=== PATIENT | male | born 1975 | race American Indian/Alaskan Native ===

== ENCOUNTER 2018-11-08 09:50 | Emergency (ER) | payer MEDICAID ==
[2018-11-08 09:59] VITALS: BP 113/64
--- NOTE | 2018-11-08 11:19 | Emergency Department Report ---
Chief Complaint: Urogenital-Male Stated Complaint: GENTIAL DISCHARGE - HPI History of Present Illness: NAD GIVEN URINE CUP MSE COMPLETED - Exam Vital Signs: Vital Signs 11/08/18 09:58 Temperature 97.8 F Pulse Rate 57 L Respiratory 18 Rate Blood Pressure 113/64 O2 Sat by Pulse 100 Oximetry MSE screening note: Focused history and physical exam performed. Due to findings the following was ordered: ED Disposition for MSE Condition: Stable Referrals: ALEXX VICTORIA MD [Primary Care Provider] - 3-5 Days
[2018-11-08] MEDS ORDERED: XYLOCAINE 1% MPF 5 mL INFILTRATI ONE (11:30)
[2018-11-08] MEDS ORDERED: ROCEPHIN IM ONE (11:30)
[2018-11-08] MEDS ORDERED: ZITHROMAX PO ONE (11:30)
--- NOTE | 2018-11-08 11:31 | Emergency Department Report ---
ED Dysuria HPI - HPI Chief Complaint: Urogenital-Male Stated Complaint: GENTIAL DISCHARGE Time Seen by Provider: 11/08/18 11:30 Duration: 2 Days Severity: Mild Symptoms: Dysuria: Yes, Frequency: No, Suprapubic Pain: No, Flank Pain: No, Fever: No, Hematuria: No, Abdominal Pain: No, Previous UTI's: No Other History: Penile discharge for 2 days. No abd or testicular pain. Sex with new female, unknown, unprotected. ED Review of Systems ROS: Stated complaint: GENTIAL DISCHARGE Other details as noted in HPI Comment: All other systems reviewed and negative ED Past Medical Hx - Past Medical History Previous Medical History?: Yes Hx HIV: Yes - Surgical History Past Surgical History?: No - Family History Family history: no significant - Social History Smoking Status: Current Every Day Smoker Substance Use Type: Alcohol - Medications Home Medications: Home Medications Medication Instructions Recorded Confirmed Last Taken Type Sulfamethoxazole/Trimethoprim 1 each PO BID #14 tablet 11/08/18 Unknown Rx [Bactrim DS TAB] Dysuria Exam - Exam General: Vital signs noted. No distress. Alert and acting appropriately. Exam: Yes Moist Mucous Membranes, No CVA Tenderness, No Abdominal Tenderness, No Rigidity or Guarding ED Course Vital Signs 11/08/18 09:58 Temperature 97.8 F Pulse Rate 57 L Respiratory 18 Rate Blood Pressure 113/64 O2 Sat by Pulse 100 Oximetry ED Medical Decision Making - Medical Decision Making Labs 11/08/18 11/08/18 Unknown Unknown Urine Color Straw Urine Turbidity Clear Urine pH 5.0 Ur Specific [place] 1.028 Urine Protein <15 mg/dl Urine Glucose (UA) Neg Urine Ketones Neg Urine Blood Sm Urine Nitrite Neg Urine Bilirubin Neg Urine Urobilinogen < 2.0 Ur Leukocyte Esterase Mod Urine WBC (Auto) 82.0 H Urine RBC (Auto) 5.0 Urine Bacteria (Auto) 1+ Urine Mucus Few C.trachomatis DNA (SDA) Not detected N.gonorrhoeae DNA (SDA) Detected H Vital Signs 11/08/18 09:58 Temperature 97.8 F Pulse Rate 57 L Respiratory 18 Rate Blood Pressure 113/64 O2 Sat by Pulse 100 Oximetry here with penile discharge no testicular pain concerned related to sexual activity he is a public health risk left untreated dc home with instructions for follow up Critical care attestation.: If time is entered above; I have spent that time in minutes in the direct care of this critically ill patient, excluding procedure time. ED Disposition Clinical Impression: STD (sexually transmitted disease), Penile discharge Disposition: DC- TO HOME OR SELFCARE Is pt being admited?: No Does the pt Need Aspirin: No Condition: Stable Instructions: Safe Sex (ED) Prescriptions: Sulfamethoxazole/Trimethoprim [Bactrim DS TAB] 1 each PO BID #14 tablet Referrals: ALEXX VICTORIA MD [Primary Care Provider] - 3-5 Days Time of Disposition: 12:04
[2018-11-08 12:02] LABS: Bacteria,Urine 1+ /HPF (Negative); Bilirubin,Urine NEG (Negative); Blood,Urine SM (Negative); Color,Urine Straw (Yellow); Mucus,Urine FEW /HPF; Protein,Urine <15 mg/dL mg/dL (Negative); Urobilinogen,Urine < 2.0 mg/dL (<2.0)
--- NOTE | 2018-11-08 12:06 | Emergency Department Report ---
HPI - General Chief Complaint: Urogenital-Male Time Seen by Provider: 11/08/18 11:30 - HPI HPI: 43-year-old male presents to the emergency department with a complaint of a 3 day history of white penile discharge and some pain just to the side of his penis. He has a history of HIV and says that he is compliant with his HIV medication. He says he has an infectious disease physician for follow- up. He denies any lesions to the penis or scrotum. He has not taken anything for her symptoms prior to arrival. No recent travel or sick contacts at home. ED Past Medical Hx - Past Medical History Previous Medical History?: Yes Hx HIV: Yes - Surgical History Past Surgical History?: No - Social History Smoking Status: Current Every Day Smoker Substance Use Type: Alcohol - Medications Home Medications: Home Medications Medication Instructions Recorded Confirmed Last Taken Type Sulfamethoxazole/Trimethoprim 1 each PO BID #14 tablet 11/08/18 Unknown Rx [Bactrim DS TAB] ED Review of Systems ROS: Stated complaint: GENTIAL DISCHARGE Other details as noted in HPI Comment: All other systems reviewed and negative Constitutional: denies: chills, fever Eyes: denies: eye pain, vision change ENT: denies: ear pain, throat pain Respiratory: denies: cough, shortness of breath Cardiovascular: denies: chest pain, palpitations Gastrointestinal: denies: abdominal pain, vomiting Genitourinary: discharge. denies: dysuria Musculoskeletal: denies: back pain, arthralgia Skin: denies: rash, lesions Neurological: denies: headache, weakness Physical Exam - Physical Exam Vital Signs: Vital Signs 11/08/18 09:58 Temperature 97.8 F Pulse Rate 57 L Respiratory 18 Rate Blood Pressure 113/64 O2 Sat by Pulse 100 Oximetry Physical Exam: GENERAL: The patient is well-developed well-nourished. HEENT: Normocephalic. Atraumatic. Patient has moist mucous membranes. EYES: Extraocular motions are intact. NECK: Supple. Trachea is midline. CHEST/LUNGS: Clear to auscultation. There is no respiratory distress noted. HEART/CARDIOVASCULAR: Regular. There is no tachycardia. There is no obvious murmur. ABDOMEN: There is no abdominal distention. SKIN: Skin is warm and dry. NEURO: The patient is awake, alert, and oriented. The patient is cooperative. The patient has no focal neurologic deficits. The patient has normal speech. MUSCULOSKELETAL: There is no tenderness or deformity. There is no limitation range of motion. There is no evidence of acute injury. : No penile lesions or rash. Normal-appearing external genitalia. No current discharge seen. ED Course Vital Signs 11/08/18 09:58 Temperature 97.8 F Pulse Rate 57 L Respiratory 18 Rate Blood Pressure 113/64 O2 Sat by Pulse 100 Oximetry ED Medical Decision Making - Medical Decision Making Patient presents with a three-day history of some penile discharge. Vital signs stable clearly afebrile. On examination genitalia appears normal without any current discharge. Treated empirically with azithromycin and Rocephin. Urinalysis shows a significant urinary tract infection and Bactrim will be added to his antibiotic regimen. He will follow up with primary care physician. We discussed safe sex practices. He will return to the ER with any worsening of his symptoms or any acute distress. - Differential Diagnosis gonorrhea, chlamydia, syphilis Critical Care Time: No Critical care attestation.: If time is entered above; I have spent that time in minutes in the direct care of this critically ill patient, excluding procedure time. ED Disposition Clinical Impression: STD (sexually transmitted disease), Penile discharge Disposition: DC-01 TO HOME OR SELFCARE Is pt being admited?: No Condition: Stable Instructions: Safe Sex (ED) Prescriptions: Sulfamethoxazole/Trimethoprim [Bactrim DS TAB] 1 each PO BID #14 tablet Referrals: ALEXX VICTORIA MD [Primary Care Provider] - 3-5 Days
== END 2018-11-08 13:02 | disposition home or self-care (01) ==
LOC: ED 09:50
DX: A64 Unspecified sexually transmitted disease (principal); R36.9 Urethral discharge, unspecified; F17.200 Nicotine dependence, unspecified, uncomplicated; Z88.6 Allergy status to analgesic agent
CPT/HCPCS: 81001; 87591; 96372; 99283; J0696